=== PATIENT | male | born 2000 | race Caucasian/White ===

== ENCOUNTER 2018-04-20 17:12 | Emergency (ER) | payer OTHER ==
[2018-04-20 17:17] VITALS: BP 124/86; PULSE 71; RESP 18; TEMP 98.3
[2018-04-20] MEDS ORDERED: CYCLOBENZAPRINE 5 MG TAB PO STA (17:29)
[2018-04-20] MEDS ORDERED: KETOROLAC 30 MG/ML 1 ML VIAL IM STA (17:29)
--- NOTE | 2018-04-20 17:33 | ED ---
Back Pain HPI - General Chief Complaint: Back Pain/Injury Stated Complaint: poss pinched nerve Time Seen by Provider: 04/20/18 17:23 Source: patient Limitations: no limitations - History of Present Illness Initial Comments: 18-year-old male who denies past medical history presenting today for chief complaint of right lower back pain. Patient states that 2 hours prior to presentation he was driving his hi-lo at work. He stated he twisted his torso to look back over his right shoulder when he felt a sharp shooting pain in his right lower back. He states this a 7 out of 10. He states is mostly localized to the right lower back, he did have one episode of it shooting down towards the right leg. He denies leg pain currently. Patient denies any muscle weakness, loss of sensation lower extremity is, urinary retention, also bowel bladder control, midline back pain. Patient states that it feels like a pinched nerve or muscle spasm. Upon arrival patient is able to work, he appears well no signs of acute distress. Patient denies taking any medication prior to arrival. Upon arrival patient's vital signs stable. Remainder of ROS ( -), patient denies any recent fever, chills, shortness of breath, chest pain, back pain, abdominal pain, nausea or vomiting, numbness or tingling, dysuria or hematuria, constipation or diarrhea, headaches or visual changes, or any other complaints. - Related Data Previous Rx's Medication Instructions Recorded Cyclobenzaprine [Flexeril] 5 mg PO HS 3 Days #3 tab 04/20/18 Ibuprofen 800 mg PO Q8H PRN 7 Days #21 tablet 04/20/18 Allergies Allergy/AdvReac Type Severity Reaction Status Date / Time No Known Allergies Allergy Verified 04/20/18 17:17 Review of Systems ROS Statement: Those systems with pertinent positive or pertinent negative responses have been documented in the HPI. ROS Other: All systems not noted in ROS Statement are negative. Constitutional: Denies: fever, chills, night sweats Eyes: Denies: vision change ENT: Denies: ear pain, throat pain Respiratory: Denies: cough, dyspnea, wheezes, hemoptysis, stridor Cardiovascular: Denies: chest pain, palpitations Endocrine: Denies: fatigue Gastrointestinal: Denies: abdominal pain, nausea, vomiting, diarrhea, constipation Genitourinary: Denies: frequency, hematuria Musculoskeletal: Reports: as per HPI, back pain Skin: Denies: rash, lesions Neurological: Denies: headache, weakness, numbness, paresthesias, confusion, abnormal gait Past Medical History Past Medical History: No Reported History History of Any Multi-Drug Resistant Organisms: None Reported Past Surgical History: No Surgical Hx Reported Past Psychological History: No Psychological Hx Reported Smoking Status: Never smoker Past Alcohol Use History: None Reported Past Drug Use History: None Reported General Exam - General Exam Comments Initial Comments: General: The patient is awake and alert, in no distress, and does not appear acutely ill. Eye: Pupils are equal, round and reactive to light, extra-ocular movements are intact. No nystagmus. There is normal conjunctiva bilaterally. No signs of icterus. Ears, nose, mouth and throat: There are moist mucous membranes and no oral lesions. Neck: The neck is supple, there is no tenderness or JVD. Cardiovascular: There is a regular rate and rhythm. No murmur, rub or gallop is appreciated. Respiratory: Lungs are clear to auscultation, respirations are non-labored, breath sounds are equal. No wheezes, stridor, rales, or rhonchi. Musculoskeletal: Upon inspection of the lumbar spine, there is no lesions lacerations or abrasions. Patient is able to fully range the lumbar spine with full flexion, hyperextension, lateral flexion and rotation. Patient does complain of pain in the right lower back with all movements. Patient has no midline tenderness to palpation of the spinal column from cervical spine to the lumbar. Patient does admit to right-sided low back pain. This area is tender to palpation. Strength 5/5 of the lower extremities equally bilaterally, patient has 2 out of 5 deep tendon reflexes equally bilaterally of the lower extremities no evidence of mild clonus or fasciculations. Sensation intact equal bilaterally including the saddle region. Dorsalis pedis pulses equal bilaterally 2+. Neurological: A&O x 3. CN II-XII intact, There are no obvious motor or sensory deficits. Coordination appears grossly intact. Speech is normal. Skin: Skin is warm and dry and no rashes or lesions are noted. Psychiatric: Cooperative, appropriate mood & affect, normal judgment. Limitations: no limitations Course Vital Signs 04/20/18 17:15 Temperature 98.3 F Pulse Rate 71 Respiratory 18 Rate Blood Pressure 124/86 O2 Sat by Pulse 98 Oximetry Medical Decision Making - Medical Decision Making Given history and physical examination findings I feel at this time patient has a right-sided low back strain. He denies any recent history of fall or trauma to the local bar spine. Patient had no midline tenderness to palpation on physical examination. There is no neurological deficits. Patient was given Flexeril, he stated he had a ride home. In addition patient is given Toradol for pain management. Patient was ambulating in the room without difficulty he stated that these medications helped the pain. Patient will be discharged with prescription for Flexeril and ibuprofen 800 mg for muscle spasm and pain management. The risks were discussed with patient regarding use of Flexeril, he verbalized understanding. Case is discussed in detail with Dr. Tyler who agrees with impression and plan. Return parameters discussed in detail, patient verbalizes understanding. Patient was discharged in stable condition with primary care follow-up in 1-2 days. Disposition Clinical Impression: Low back strain Disposition: HOME SELF-CARE Condition: Good Instructions: Low Back Strain (ED), Acute Low Back Pain (ED) Additional Instructions: Please use medication as discussed, no working, driving, operating machinery or consume alcohol on his fluids up Flexeril. Please follow-up with family doctor in the next 2 days. Please return to emergency room if the symptoms increase or worsen or for any other concerns, as discussed. Prescriptions: Cyclobenzaprine [Flexeril] 5 mg PO HS 3 Days #3 tab Ibuprofen 800 mg PO Q8H PRN 7 Days #21 tablet PRN Reason: Pain Is patient prescribed a controlled substance at d/c from ED?: No Referrals: None,Stated [Primary Care Provider] - 1-2 days [facility]FF[facility] - 1-2 days Time of Disposition: 17:32
== END 2018-04-20 18:51 | disposition home or self-care (01) ==
LOC: EC 17:12
DX: S39.012A Strain of muscle, fascia and tendon of lower back, initial encounter (principal); X58.XXXA Exposure to other specified factors, initial encounter
CPT/HCPCS: 99283; 96372; J1885

== ENCOUNTER → 2018-04-25 | Outpatient (CLI) | payer OTHER ==
--- NOTE | 2018-04-25 14:39 | XR ---
EXAMINATION TYPE: XR lumbar spine 2 or 3V DATE OF EXAM: 04/25/2018 CLINICAL HISTORY: pain TECHNIQUE: Three views of the lumbar spine are submitted. COMPARISON: None. FINDINGS: There are 5 lumbar type vertebral bodies identified. The lumbar spine shows satisfactory alignment w ithout evidence of acute fracture or dislocation. Vertebral body heights are within normal limits. Disc spaces are within normal limits. The overlying soft tissue appears unremarkable. IMPRESSION: No acute fracture or dislocation is seen in the lumbar spine. ICD 10 NO FRACTURE, INITIAL EVALUATION
== END ==
LOC: RADXRMAIN 14:19
PROVIDERS: ATTEND Emergency Medicine
DX: S39.012D Strain of muscle, fascia and tendon of lower back, subsequent encounter (principal)
CPT/HCPCS: 72100